=== PATIENT | female | born 1955 | race Caucasian/White ===

== ENCOUNTER 2021-10-25 19:07 | Inpatient (IN) | payer MEDICARE ==
[~2021-10-25] VITALS: Ht 165.1 cm; Wt 67.3 kg
[2021-10-25 19:35] LABS: Source, Urine Clean Catch
[2021-10-25 19:37] LABS: BASOPHILS ABSOLUTE AUTO 0.02 K/mm3 (0.00-0.23); BASOPHILS PERCENT AUTO 0 % (0-2); EOSINOPHILS ABSOLUTE AUTO 0.08 K/mm3 (0.00-0.68); EOSINOPHILS PERCENT AUTO 1 % (0-6); Hemoglobin 9.6 g/dL (11.5-16.0); IMMATURE GRAN ABSOLUTE AUTO 0.04 K/mm3 (0.00-0.10); IMMATURE GRAN PERCENT AUTO 0 % (0-1); LYMPHOCYTES ABSOLUTE AUTO 1.01 K/mm3 (0.84-5.20); LYMPHOCYTES PERCENT AUTO 11 % (21-46); MONOCYTES ABSOLUTE AUTO 0.67 K/mm3 (0.16-1.47); MONOCYTES PERCENT AUTO 7 % (4-13); Mean Corpuscular HGB 29.9 pg (26.0-34.0); Mean Corpuscular HGB Conc 36.9 g/dL (31.5-36.5); Mean Corpuscular Volume 81 fL (80-100); Mean Platelet Volume 8.8 fL (9.1-12.4); NEUTROPHILS ABSOLUTE AUTO 7.58 K/mm3 (1.96-9.15); NEUTROPHILS PERCENT AUTO 81 % (41-73); Platelet Count 461 K/mm3 (150-400); RDW Coefficient Variation 11.9 % (11.7-14.2); RDW Standard Deviation 35.4 fL (35.1-46.3); Red Blood Cell Count 3.21 M/mm3 (3.80-5.20)
[2021-10-25 19:38] LABS: Bilirubin, Urine Neg (Neg); Blood, Urine 5+ (Neg); Glucose Qualitative, Urine Neg (Neg); Ketones, Urine Neg (Neg); Leukocyte Esterase, Urine 3+ (Neg); Nitrite, Urine Neg (Neg); Protein, Urine 2+ (Neg); Urobilinogen, Urine NORM (Normal)
[2021-10-25 20:03] LABS: Appearance, Urine Hazy (Clear); Bacteria Many /hpf; Color, Urine Yellow (P-Yellow); Red Blood Cells, Urine 0-2 /hpf (0-2); Squamous Epithelial Cells Rare /hpf (Few); White Blood Cells, Urine TNTC /hpf (0-5)
[2021-10-25 20:11] LABS: Albumin, Blood 3.6 g/dL (3.4-5.0); Albumin/Globulin Ratio 1.2 (0.8-1.8); Bilirubin, Total 0.3 mg/dL (0.1-1.0); Bun/Creatinine Ratio 13.6 (12.0-20.0); Calcium, Blood 9.5 mg/dL (8.5-10.1); Creatinine, Blood 1.1 mg/dL (0.40-1.00); Globulin, Blood 3.1 g/dL (2.2-4.0); Potassium, Blood 3.2 mmol/L (3.5-5.5); Total Protein, Blood 6.7 g/dL (6.4-8.2)
[2021-10-26 03:29] LABS: Bun/Creatinine Ratio 12.4 (12.0-20.0); Calcium, Blood 8.9 mg/dL (8.5-10.1); Creatinine, Blood 1.13 mg/dL (0.40-1.00); Potassium, Blood 3.8 mmol/L (3.5-5.5)
[2021-10-26 06:15] LABS: BASOPHILS ABSOLUTE AUTO 0.02 K/mm3 (0.00-0.23); BASOPHILS PERCENT AUTO 0 % (0-2); EOSINOPHILS ABSOLUTE AUTO 0.07 K/mm3 (0.00-0.68); EOSINOPHILS PERCENT AUTO 1 % (0-6); Hematocrit 26.9 % (33.0-51.0); Hemoglobin 9.6 g/dL (11.5-16.0); IMMATURE GRAN ABSOLUTE AUTO 0.04 K/mm3 (0.00-0.10); IMMATURE GRAN PERCENT AUTO 1 % (0-1); LYMPHOCYTES ABSOLUTE AUTO 0.98 K/mm3 (0.84-5.20); LYMPHOCYTES PERCENT AUTO 12 % (21-46); MONOCYTES ABSOLUTE AUTO 0.77 K/mm3 (0.16-1.47); MONOCYTES PERCENT AUTO 9 % (4-13); Mean Corpuscular HGB 29.9 pg (26.0-34.0); Mean Corpuscular HGB Conc 35.7 g/dL (31.5-36.5); Mean Corpuscular Volume 84 fL (80-100); Mean Platelet Volume 8.8 fL (9.1-12.4); NEUTROPHILS ABSOLUTE AUTO 6.35 K/mm3 (1.96-9.15); NEUTROPHILS PERCENT AUTO 77 % (41-73); Platelet Count 415 K/mm3 (150-400); RDW Coefficient Variation 11.9 % (11.7-14.2); RDW Standard Deviation 36.7 fL (35.1-46.3); Red Blood Cell Count 3.21 M/mm3 (3.80-5.20); White Blood Cell Count 8.23 K/mm3 (4.00-11.30)
[2021-10-26 06:38] LABS: Alanine Aminotransfer (ALT/SGP 26 U/L (12-78); Albumin, Blood 3.3 g/dL (3.4-5.0); Alk Phos 64 U/L (50-136); Anion Gap 9 mmol/L (6-16); Bilirubin, Total 0.3 mg/dL (0.1-1.0); Blood Urea Nitrogen 15 mg/dL (8-24); Bun/Creatinine Ratio 11.6 (12.0-20.0); CO2, Blood 29 mmol/L (21-32); Calcium, Blood 9.3 mg/dL (8.5-10.1); Chloride, Blood 80 mmol/L (98-108); Creatinine, Blood 1.29 mg/dL (0.40-1.00); Globulin, Blood 3.2 g/dL (2.2-4.0); Glomerular Filtration Rate 46 (60-); Glucose, Blood 101 mg/dL (70-99); Potassium, Blood 3.8 mmol/L (3.5-5.5); Total Protein, Blood 6.5 g/dL (6.4-8.2)
[2021-10-26 06:40] LABS: Aspartate Aminotrans (AST/SGOT <3 U/L (12-37); Sodium, Blood 118 mmol/L (136-145)
--- NOTE | 2021-10-26 17:41 | NUR ---
SUMMARY PT RESTING IN BED. A/O X4 ALL DAY. USES CALL LIGHT APPROPRIATELY. WAS ON 3% SALINE FOR A SHORT TIME TODAY. SODIUM IMPROVING. NO SIGN OF DISTRESS. NO ACUTE CHANGES THIS SHIFT.
[2021-10-27 03:40] LABS: Bun/Creatinine Ratio 16.2 (12.0-20.0); Calcium, Blood 8.9 mg/dL (8.5-10.1); Creatinine, Blood 1.11 mg/dL (0.40-1.00); Potassium, Blood 3.7 mmol/L (3.5-5.5)
--- NOTE | 2021-10-27 05:49 | NUR ---
PT. RESTED OVERNIGHT AND HAD NO COMPLAINTS THROUGHOUT. PT. WAS UP TO COMMODE WITH STANBY ASSISTANCE FOR 2 VOIDS AND A BOWEL MOVEMENT. PT.'S BP, HR, AND 02 WERE WNL THROUGHOUT THE NIGHT. PT. SODIUM LAB OF THIS AM WAS UP TO 128. PT. RESTING COMFORTABLY AT THIS TIME.
--- NOTE | 2021-10-27 07:29 | NUR ---
REPORT FROM PM RN, NO DISTRESS, AWAKE, ORIENTED, PATIENT IS READY TO GO HOME, NA 128, CALL LIGHT WITH IN REACH, WCTM
[2021-10-27] MEDS ORDERED: Acetaminophen650 M1 PO (09:23)
[2021-10-27] MEDS ORDERED: VISBIOME 112.51 EACH PO (09:25)
[2021-10-27] MEDS ORDERED: CIPR500 PO (09:28)
--- NOTE | 2021-10-27 11:29 | NUR ---
DISCHARGED AT 1115, FRIEND ACCOMPANYING, PATIENT STATED UNDERSTANDING OF DISCHARGE INSTRUCTIONS AND FOLLOW UP NEEDS, VIA W/C TO CAR
== END 2021-10-27 11:15 | disposition home or self-care (01) | DRG 690 ==
LOC: ER 19:07 → ICUW 23:59 → ERHOLD 23:59 → ICUW 10-26 05:32
PROVIDERS: Emergency Medicine; Family Medicine; Internal Medicine; ADMIT Internal Medicine
DX: N39.0 Urinary tract infection, site not specified (principal); E87.1 Hypo-osmolality and hyponatremia; N17.9 Acute kidney failure, unspecified; B96.20 Unspecified Escherichia coli [E. coli] as the cause of diseases classified elsewhere; E87.6 Hypokalemia; I12.9 Hypertensive chronic kidney disease with stage 1 through stage 4 chronic kidney disease, or unspecified chronic kidney disease; N18.30 Chronic kidney disease, stage 3 unspecified; D63.1 Anemia in chronic kidney disease; D75.839 Thrombocytosis, unspecified; E78.5 Hyperlipidemia, unspecified; Z98.890 Other specified postprocedural states
CPT/HCPCS: 36415; 80048; 80053; 81001; 83036; 83930; 84295; 84300; 85025; 87077; 87086; 87186; 96374; 96375; 99285-25; A9270; J0696; J1650; J2405

== ENCOUNTER → 2022-08-22 | Outpatient (CLI) | payer MEDICARE, OTHER ==
[~2022-08-22] MED LIST: Acetaminophen650 M1 PO; CIPR500 PO; VISBIOME 112.51 EACH PO
[2022-08-22 15:59] LABS: Creatinine Urine 22.7 mg/dL (27.00-270.00); Protein, Urine Quantitative 22.5 mg/dL (0.0-11.9)
== END ==
LOC: LAB SHORT 03:30 → LAB 03:30
PROVIDERS: Internal Medicine Nephrology
DX: N18.30 Chronic kidney disease, stage 3 unspecified (principal); D63.1 Anemia in chronic kidney disease; N25.81 Secondary hyperparathyroidism of renal origin; E55.9 Vitamin D deficiency, unspecified; E78.00 Pure hypercholesterolemia, unspecified; E76.9 Glucosaminoglycan metabolism disorder, unspecified; R94.5 Abnormal results of liver function studies; R94.6 Abnormal results of thyroid function studies
CPT/HCPCS: 81050; 82043; 82570; 84156

== ENCOUNTER → 2023-02-19 | Outpatient (CLI) | payer MEDICARE, OTHER | LOC: LAB 13:37 → LAB SHORT 13:37 | DX: R30.0 Dysuria (principal) | CPT/HCPCS: 87077; 87086; 87186 ==

== ENCOUNTER → 2023-03-06 | Outpatient (CLI) | payer MEDICARE, OTHER | LOC: LAB SHORT 10:45 → LAB 10:45 | DX: R30.0 Dysuria (principal) | CPT/HCPCS: 87077; 87086; 87186 ==

== ENCOUNTER → 2023-03-25 | Outpatient (CLI) | payer MEDICARE, OTHER | END | disposition home or self-care (01) | LOC: LAB SHORT 13:43 → LAB 13:43 | DX: N39.0 Urinary tract infection, site not specified (principal) | CPT/HCPCS: 87086 ==

== ENCOUNTER → 2023-04-04 | Outpatient (CLI) | payer MEDICARE, OTHER | LOC: LAB 14:53 → LAB SHORT 14:53 | DX: N39.0 Urinary tract infection, site not specified (principal) | CPT/HCPCS: 87086 ==

== ENCOUNTER → 2023-12-25 | Outpatient (CLI) | payer MEDICARE, OTHER | LOC: LAB 09:00 → LAB SHORT 09:00 | DX: N39.0 Urinary tract infection, site not specified (principal) | CPT/HCPCS: 87077; 87086; 87186 ==

== ENCOUNTER 2024-06-10 20:59 | Observation (INO) | payer MEDICARE, OTHER ==
[~2024-06-10] VITALS: Ht 165.1 cm; Wt 62.1 kg
[2024-06-10 22:48] LABS: Source, Urine Clean Catch
[2024-06-10] MEDS ORDERED: Melatonin 3 MG Tab PO ONE (22:50)
[2024-06-10 23:07] LABS: Appearance, Urine Hazy (Clear); Bilirubin, Urine Neg (Neg); Blood, Urine 4+ (Neg); Color, Urine Yellow (P-Yellow); Glucose Qualitative, Urine Neg (Neg); Ketones, Urine Neg (Neg); Leukocyte Esterase, Urine 3+ (Neg); Nitrite, Urine Neg (Neg); Protein, Urine 2+ (Neg); Specific Gravity, Urine 1.005 (1.003-1.022); Urobilinogen, Urine NORM (Normal)
[2024-06-10 23:11] LABS: Albumin, Blood 3.9 g/dL (3.4-5.0); Albumin/Globulin Ratio 1.1 (0.8-1.8); Bilirubin, Total 0.3 mg/dL (0.1-1.0); Bun/Creatinine Ratio 17.2 (12.0-20.0); Calcium, Blood 9.5 mg/dL (8.5-10.1); Creatinine, Blood 1.51 mg/dL (0.40-1.00); Globulin, Blood 3.4 g/dL (2.2-4.0); Potassium, Blood 3.8 mmol/L (3.5-5.5); Thyroid Stimulating Hormone 4.79 uIU/mL (0.360-4.800); Total Protein, Blood 7.3 g/dL (6.4-8.2)
[2024-06-10 23:11] LABS: BASOPHILS ABSOLUTE AUTO 0.05 K/mm3 (0.00-0.23); BASOPHILS PERCENT AUTO 1 % (0-2); EOSINOPHILS ABSOLUTE AUTO 0.04 K/mm3 (0.00-0.68); EOSINOPHILS PERCENT AUTO 0 % (0-6); Hematocrit 28.9 % (33.0-51.0); Hemoglobin 9.9 g/dL (11.5-16.0); IMMATURE GRAN ABSOLUTE AUTO 0.05 K/mm3 (0.00-0.10); IMMATURE GRAN PERCENT AUTO 1 % (0-1); LYMPHOCYTES ABSOLUTE AUTO 1.33 K/mm3 (0.84-5.20); LYMPHOCYTES PERCENT AUTO 14 % (21-46); MONOCYTES ABSOLUTE AUTO 0.67 K/mm3 (0.16-1.47); MONOCYTES PERCENT AUTO 7 % (4-13); Mean Corpuscular HGB 32.1 pg (26.0-34.0); Mean Corpuscular HGB Conc 34.3 g/dL (31.5-36.5); Mean Corpuscular Volume 94 fL (80-100); Mean Platelet Volume 8.9 fL (9.1-12.4); NEUTROPHILS PERCENT AUTO 77 % (41-73); Platelet Count 319 K/mm3 (150-400); RDW Coefficient Variation 13.1 % (11.7-14.2); RDW Standard Deviation 44.8 fL (35.1-46.3); Red Blood Cell Count 3.08 M/mm3 (3.80-5.20); White Blood Cell Count 9.34 K/mm3 (4.00-11.30)
[2024-06-10 23:14] LABS: Squamous Epithelial Cells Few /hpf (Few); White Blood Cells, Urine 25-50 /hpf (0-5)
[2024-06-10 23:15] LABS: Bacteria Many /hpf; Transitional Epithelial Cells Rare /hpf (0-Rare)
[2024-06-10] MEDS ORDERED: CefTRIAXone Sodium 1,000 MG in NS 50 ML IV ONE (23:30)
[2024-06-11] MEDS ORDERED: FLU VACC TS2024-25(6MOS UP)/PF 45 MCG/0.5 ML SYRINGE IM ONE (00:20)
[2024-06-11] MEDS ORDERED: LOSA50 PO ×2 (00:42)
[2024-06-11] MEDS ORDERED: CATAPRES0.1 MG PO ×2 (00:44)
[2024-06-11] MEDS ORDERED: Labetalol HCL 5 MG/ML 4ML Injection (Single Dose) IV ONE (01:00)
[2024-06-11] MEDS ORDERED: Labetalol HCL 5 MG/ML 4ML Injection (Single Dose) IV PRN (01:00)
[2024-06-11 01:12] VITALS: BP 201/99
[2024-06-11] MEDS ORDERED: SODCHL1 PO ×2 (01:44)
[2024-06-11 04:45] VITALS: BP 161/116
[2024-06-11] MEDS ORDERED: Losartan Potassium 50 MG Tab PO SCH (05:00)
[2024-06-11] MEDS ORDERED: Atorvastatin 40 MG Tab PO SCH (05:00)
[2024-06-11] MEDS ORDERED: Aspirin 325 MG Tab PO ONE (05:00)
[2024-06-11] MEDS ORDERED: CloNIDine 0.1 MG Tab PO SCH (05:00)
[2024-06-11] MEDS ORDERED: Clopidogrel Bisulfate 300 MG TABLET PO ONE (05:00)
[2024-06-11 05:56] LABS: BASOPHILS ABSOLUTE AUTO 0.03 K/mm3 (0.00-0.23); BASOPHILS PERCENT AUTO 0 % (0-2); EOSINOPHILS ABSOLUTE AUTO 0.15 K/mm3 (0.00-0.68); EOSINOPHILS PERCENT AUTO 2 % (0-6); Hematocrit 29.4 % (33.0-51.0); Hemoglobin 10.3 g/dL (11.5-16.0); IMMATURE GRAN ABSOLUTE AUTO 0.03 K/mm3 (0.00-0.10); IMMATURE GRAN PERCENT AUTO 0 % (0-1); LYMPHOCYTES ABSOLUTE AUTO 1.36 K/mm3 (0.84-5.20); LYMPHOCYTES PERCENT AUTO 18 % (21-46); MONOCYTES ABSOLUTE AUTO 0.89 K/mm3 (0.16-1.47); MONOCYTES PERCENT AUTO 12 % (4-13); Mean Corpuscular HGB 32.5 pg (26.0-34.0); Mean Corpuscular Volume 93 fL (80-100); NEUTROPHILS ABSOLUTE AUTO 5.18 K/mm3 (1.96-9.15); NEUTROPHILS PERCENT AUTO 68 % (41-73); Platelet Count 335 K/mm3 (150-400); RDW Standard Deviation 44.2 fL (35.1-46.3); Red Blood Cell Count 3.17 M/mm3 (3.80-5.20); White Blood Cell Count 7.64 K/mm3 (4.00-11.30)
--- NOTE | 2024-06-11 06:09 | NUR ---
SHIFT SUMMARY; PATIENT ADMITED FROM ER VIA W/C. DENIES PAIN ABLE TO STAND AND MOVE TO BED. ADMIT COMPLETED. PATIETN REFUSED SCDS. SINCE SHE IS AMBULATORY. HTN NOTED
[2024-06-11 06:23] LABS: Anion Gap 12 mmol/L (3-11); Blood Urea Nitrogen 23 mg/dL (8-24); Bun/Creatinine Ratio 17.7 (12.0-20.0); CHOL/HDL RATIO 2.3; CO2, Blood 28 mmol/L (21-32); Calcium, Blood 9.5 mg/dL (8.5-10.1); Chloride, Blood 95 mmol/L (98-108); Cholesterol 218 mg/dL (50-200); Glomerular Filtration Rate 45 (60-); Glucose, Blood 97 mg/dL (70-99); HDL Cholesterol 96 mg/dL (>39); LDL/HDL RATIO 1.1; Low Density Lipoprotein Chol 104 mg/dL (0-110); Potassium, Blood 3.6 mmol/L (3.5-5.5); Sodium, Blood 131 mmol/L (136-145); Triglycerides 91 mg/dL (30-160); Very Low Density Lipoprot Chol 18 mg/dL (6-32)
--- NOTE | 2024-06-11 06:33 | NUR ---
PATIENT TAKEN VIA W/C FOR MRI.
[2024-06-11 07:43] VITALS: BP 189/92
[2024-06-11] MEDS ORDERED: Heparin Sodium 5000 Units/ML 1ML MDV SC SCH (09:00)
[2024-06-11] MEDS ORDERED: Sodium Chloride 1 GM TAB PO ONE (12:00)
[2024-06-11] MEDS ORDERED: ASPI81CH PO ×2 (13:02)
[2024-06-11] MEDS ORDERED: ATOR80 PO ×2 (13:02)
[2024-06-11] MEDS ORDERED: CLOP75 PO ×2 (13:02)
[2024-06-11 15:57] VITALS: BP 188/95
[2024-06-12] MEDS ORDERED: Clopidogrel Bisulfate 75 MG Tab PO SCH (05:00)
[2024-06-12] MEDS ORDERED: Aspirin 81 MG Chew PO SCH (05:00)
== END 2024-06-11 16:17 | disposition home or self-care (01) ==
LOC: ER 20:59 → ERHOLD 21:00 → MEDS 06-11 00:15 → ER 06-11 00:15 → MEDS 06-11 01:01 → ERHOLD 06-11 01:01 → MEDS 06-11 01:02
PROVIDERS: Emergency Medicine; Family Medicine; ADMIT Internal Medicine
DX: I63.9 Cerebral infarction, unspecified (principal); R29.818 Other symptoms and signs involving the nervous system; I10 Essential (primary) hypertension; N39.0 Urinary tract infection, site not specified; E87.1 Hypo-osmolality and hyponatremia; E78.00 Pure hypercholesterolemia, unspecified; D64.9 Anemia, unspecified; Z79.82 Long term (current) use of aspirin
CPT/HCPCS: 36415; 70450; 70496; 70498; 70551; 71046; 80048; 80053; 80061; 81001; 83036; 83605; 84443; 84484; 85025; 85730; 87040; 87077; 87086; 87186; 93005; 93010; 96374; 99285-25; A9270; G0378; J0696; Q9967

== ENCOUNTER 2024-06-30 09:28 | Emergency (ER) | payer MEDICARE, OTHER ==
[~2024-06-30] VITALS: Ht 167.6 cm; Wt 72.6 kg
[~2024-06-30 09:28] MED LIST changes: +ASPI81CH PO; +ATOR80 PO; +CATAPRES0.1 MG PO; +CLOP75 PO; +LOSA50 PO; +SODCHL1 PO
[2024-06-30 10:32] LABS: Source, Urine Clean Catch
[2024-06-30 10:39] LABS: Appearance, Urine Clear (Clear); Bilirubin, Urine Neg (Neg); Blood, Urine 5+ (Neg); Color, Urine Yellow (P-Yellow); Glucose Qualitative, Urine Neg (Neg); Ketones, Urine Neg (Neg); Leukocyte Esterase, Urine 3+ (Neg); Nitrite, Urine Neg (Neg); Protein, Urine 2+ (Neg); Urobilinogen, Urine NORM (Normal)
[2024-06-30 10:42] LABS: BASOPHILS ABSOLUTE AUTO 0.06 K/mm3 (0.00-0.23); BASOPHILS PERCENT AUTO 0 % (0-2); EOSINOPHILS ABSOLUTE AUTO 0.02 K/mm3 (0.00-0.68); EOSINOPHILS PERCENT AUTO 0 % (0-6); Hematocrit 29.9 % (33.0-51.0); Hemoglobin 10.5 g/dL (11.5-16.0); IMMATURE GRAN PERCENT AUTO 1 % (0-1); LYMPHOCYTES ABSOLUTE AUTO 0.73 K/mm3 (0.84-5.20); LYMPHOCYTES PERCENT AUTO 4 % (21-46); MONOCYTES ABSOLUTE AUTO 1.53 K/mm3 (0.16-1.47); MONOCYTES PERCENT AUTO 7 % (4-13); Mean Corpuscular HGB 32.6 pg (26.0-34.0); Mean Corpuscular HGB Conc 35.1 g/dL (31.5-36.5); Mean Corpuscular Volume 93 fL (80-100); Mean Platelet Volume 9.2 fL (9.1-12.4); NEUTROPHILS ABSOLUTE AUTO 18.12 K/mm3 (1.96-9.15); NEUTROPHILS PERCENT AUTO 88 % (41-73); Platelet Count 475 K/mm3 (150-400); RDW Coefficient Variation 12.2 % (11.7-14.2); RDW Standard Deviation 41.9 fL (35.1-46.3); Red Blood Cell Count 3.22 M/mm3 (3.80-5.20); White Blood Cell Count 20.56 K/mm3 (4.00-11.30)
[2024-06-30 10:53] LABS: Bacteria Many /hpf; Hyaline Casts 0-2 /lpf (0-2); Mucus Light (0-Heavy); Red Blood Cells, Urine 50-100 /hpf (0-2); Squamous Epithelial Cells Few /hpf (Few); White Blood Cells, Urine 50-100 /hpf (0-5)
[2024-06-30 11:18] LABS: Albumin, Blood 3.3 g/dL (3.4-5.0); Albumin/Globulin Ratio 0.8 (0.8-1.8); Bilirubin, Total 0.6 mg/dL (0.1-1.0); Bun/Creatinine Ratio 13.5 (12.0-20.0); Calcium, Blood 8.8 mg/dL (8.5-10.1); Creatinine, Blood 1.56 mg/dL (0.40-1.00); Globulin, Blood 3.9 g/dL (2.2-4.0); Total Protein, Blood 7.2 g/dL (6.4-8.2)
[2024-06-30] MEDS ORDERED: Piperacillin/Tazobactam Sod 3.375 GM in NS 100 ML IV ONE (11:30)
[2024-06-30] MEDS ORDERED: CATAPRES0.1 MG PO (11:56)
[2024-06-30] MEDS ORDERED: AMOCLA875 PO (12:45)
[2024-06-30 13:15] VITALS: BP 166/86
== END 2024-06-30 13:27 | disposition home or self-care (01) ==
LOC: ER 09:28
PROVIDERS: Emergency Medicine
DX: K57.32 Diverticulitis of large intestine without perforation or abscess without bleeding (principal); N39.0 Urinary tract infection, site not specified; I10 Essential (primary) hypertension; Z79.82 Long term (current) use of aspirin; Z79.899 Other long term (current) drug therapy
CPT/HCPCS: 74177; 80053; 81001; 83605; 85025; 87040; 87077; 87086; 87186; 96365-59; 99284-25; J2543; Q9967

== ENCOUNTER 2024-07-21 12:37 | Inpatient (IN) | payer MEDICARE, OTHER ==
[~2024-07-21] VITALS: Ht 167.6 cm; Wt 61.0 kg
[~2024-07-21 12:37] MED LIST changes: +AMOCLA875 PO
[2024-07-21 13:29] LABS: BASOPHILS ABSOLUTE AUTO 0.05 K/mm3 (0.00-0.23); BASOPHILS PERCENT AUTO 0 % (0-2); EOSINOPHILS ABSOLUTE AUTO 0.02 K/mm3 (0.00-0.68); EOSINOPHILS PERCENT AUTO 0 % (0-6); Hematocrit 25.7 % (33.0-51.0); Hemoglobin 8.7 g/dL (11.5-16.0); IMMATURE GRAN PERCENT AUTO 1 % (0-1); LYMPHOCYTES PERCENT AUTO 3 % (21-46); MONOCYTES PERCENT AUTO 5 % (4-13); Mean Corpuscular HGB 31.5 pg (26.0-34.0); Mean Corpuscular HGB Conc 33.9 g/dL (31.5-36.5); Mean Corpuscular Volume 93 fL (80-100); Mean Platelet Volume 9.4 fL (9.1-12.4); NEUTROPHILS ABSOLUTE AUTO 22.55 K/mm3 (1.96-9.15); NEUTROPHILS PERCENT AUTO 91 % (41-73); Platelet Count 491 K/mm3 (150-400); RDW Coefficient Variation 12.7 % (11.7-14.2); RDW Standard Deviation 43.4 fL (35.1-46.3); Red Blood Cell Count 2.76 M/mm3 (3.80-5.20); White Blood Cell Count 24.72 K/mm3 (4.00-11.30)
[2024-07-21 13:44] LABS: Albumin, Blood 2.9 g/dL (3.4-5.0); Albumin/Globulin Ratio 0.8 (0.8-1.8); Bilirubin, Total 0.8 mg/dL (0.1-1.0); Calcium, Blood 8.6 mg/dL (8.5-10.1); Creatinine, Blood 1.23 mg/dL (0.40-1.00); Globulin, Blood 3.5 g/dL (2.2-4.0); Potassium, Blood 3.9 mmol/L (3.5-5.5); Total Protein, Blood 6.4 g/dL (6.4-8.2)
[2024-07-21] MEDS ORDERED: Piperacillin/Tazobactam Sod 3.375 GM in NS 100 ML IV ONE (14:45)
[2024-07-21] MEDS ORDERED: SODCHL1 PO (17:43)
[2024-07-21 17:44] VITALS: BP 171/79
[2024-07-21] MEDS ORDERED: ATOR80 PO (17:45)
[2024-07-21 19:20] VITALS: BP 171/75
[2024-07-21] MEDS ORDERED: Lactobacil 2-S.Thermo-Bifido 1 1 Cap PO SCH (21:00)
[2024-07-21] MEDS ORDERED: Melatonin 5 MG Tablet PO PRN (21:10)
[2024-07-21] MEDS ORDERED: NS 250 ML IV PRN (22:10)
[2024-07-21] MEDS ORDERED: Piperacillin/Tazobactam Sod 3.375 GM in NS 100 ML IV SCH (23:00)
[2024-07-22 02:16] VITALS: BP 174/91
[2024-07-22] MEDS ORDERED: HydrALAZINE HCl 20 MG / ML 1ML Vial IV PRN (02:45)
--- NOTE | 2024-07-22 04:24 | NUR ---
SENIOR PHP WEB DEVELOPER SUMMARY BP ELEVATED, OTHERWISE VSS. NOTIFIED AND PRN OF ANTIHYPERTENSIVE MED ORDERED. SEE JUN. ASYMPTOMATIC. ALERT AND ORIENTED. ANTIBIOTICS STARTED - SEE JUN FOR DETAILS. HAD 2 BMS THIS SHIFT, FIRST PT REPORTED "CLOTS" BUT HAD FLUSHED TOILET. AGREED TO ALLOW STAFF TO SEE NEXT BM. NOTED TWO LARGE RED CLUMPS. OTHERWISE PT ASYMPTOMATIC. HAS BEEN RESTING QUIETLY WITH FEW INTERRUPTIONS OTHERWISE SINCE MELATONIN ADMIN AT HS. DENIED PAIN OR DISTRESS. CALL LIGHT IN REACH, RAILS UP X 2 AND BED IN LOW POSITION FOR SAFETY. WILL CONT TO MONITOR
[2024-07-22 05:26] LABS: BASOPHILS ABSOLUTE AUTO 0.04 K/mm3 (0.00-0.23); BASOPHILS PERCENT AUTO 0 % (0-2); EOSINOPHILS ABSOLUTE AUTO 0.22 K/mm3 (0.00-0.68); EOSINOPHILS PERCENT AUTO 2 % (0-6); Hematocrit 22.5 % (33.0-51.0); Hemoglobin 7.6 g/dL (11.5-16.0); IMMATURE GRAN ABSOLUTE AUTO 0.09 K/mm3 (0.00-0.10); IMMATURE GRAN PERCENT AUTO 1 % (0-1); LYMPHOCYTES ABSOLUTE AUTO 0.91 K/mm3 (0.84-5.20); LYMPHOCYTES PERCENT AUTO 6 % (21-46); MONOCYTES ABSOLUTE AUTO 0.91 K/mm3 (0.16-1.47); MONOCYTES PERCENT AUTO 6 % (4-13); Mean Corpuscular HGB 31.3 pg (26.0-34.0); Mean Corpuscular HGB Conc 33.8 g/dL (31.5-36.5); Mean Corpuscular Volume 93 fL (80-100); Mean Platelet Volume 9.3 fL (9.1-12.4); NEUTROPHILS ABSOLUTE AUTO 12.91 K/mm3 (1.96-9.15); NEUTROPHILS PERCENT AUTO 86 % (41-73); Platelet Count 457 K/mm3 (150-400); RDW Coefficient Variation 12.5 % (11.7-14.2); RDW Standard Deviation 42.7 fL (35.1-46.3); Red Blood Cell Count 2.43 M/mm3 (3.80-5.20); White Blood Cell Count 15.08 K/mm3 (4.00-11.30)
[2024-07-22 05:45] LABS: Bun/Creatinine Ratio 11.3 (12.0-20.0); Calcium, Blood 8.3 mg/dL (8.5-10.1); Creatinine, Blood 1.24 mg/dL (0.40-1.00); Potassium, Blood 3.8 mmol/L (3.5-5.5)
[2024-07-22 07:43] VITALS: BP 174/81
[2024-07-22] MEDS ORDERED: Losartan Potassium 50 MG Tab PO SCH (09:00)
[2024-07-22] MEDS ORDERED: Atorvastatin 40 MG Tab PO SCH (09:00)
[2024-07-22] MEDS ORDERED: CloNIDine 0.1 MG Tab PO SCH (09:00)
[2024-07-22] MEDS ORDERED: Sodium Chloride 1 GM TAB PO SCH (10:35)
[2024-07-22 14:36] LABS: Hematocrit 23.4 % (33.0-51.0); Hemoglobin 7.9 g/dL (11.5-16.0)
[2024-07-22 15:36] VITALS: BP 135/76
[2024-07-22 19:20] VITALS: BP 149/82
--- NOTE | 2024-07-22 19:28 | NUR ---
Patient A&Ox4, able to ambulate fine without assistance of staff and equipment. She was admitted due to GI bleed Is on a clear diet, last bowel movement 07/22/2024 was still bloody, but not runny. Asymptomatic besides the bloody stool. Denied pain or distress.
[2024-07-23] VITALS (10 sets, daily range): BP systolic 128–153; BP diastolic 71–92
--- NOTE | 2024-07-23 03:15 | NUR ---
SHIFT SUMMARY NO ACUTE EVENTS DURING THIS SHIFT. PT IS A/O X4, INDEPENDENT W/I THE HOSPITAL ROOM AND COOPERATIVE WITH CARE. PT REPORTS NO BM DURING THIS SHIFT. HS MELATONIN ADMINISTERED ORDERED. PT DENIES PAIN AND DISCOMFORT. PT REPORTS WOULD LIKE TO D/C TODAY. PT CONTINUES ON CLEAR LIQUID DIET, TOLERATING WELL. IV ABX INFUSED ORDERED (ZOSYN). BED AT THE LOWEST POSITION, CALL LIGHT W/I REACH.
[2024-07-23 05:40] LABS: Hematocrit 22.1 % (33.0-51.0); Hemoglobin 7.4 g/dL (11.5-16.0)
[2024-07-23 06:11] LABS: Bun/Creatinine Ratio 9.2 (12.0-20.0); Calcium, Blood 8.2 mg/dL (8.5-10.1); Creatinine, Blood 1.31 mg/dL (0.40-1.00); Potassium, Blood 3.5 mmol/L (3.5-5.5)
[2024-07-23 08:21] LABS: BASOPHILS ABSOLUTE AUTO 0.03 K/mm3 (0.00-0.23); BASOPHILS PERCENT AUTO 0 % (0-2); EOSINOPHILS ABSOLUTE AUTO 0.73 K/mm3 (0.00-0.68); EOSINOPHILS PERCENT AUTO 10 % (0-6); Hematocrit 21.6 % (33.0-51.0); Hemoglobin 7.3 g/dL (11.5-16.0); IMMATURE GRAN ABSOLUTE AUTO 0.08 K/mm3 (0.00-0.10); IMMATURE GRAN PERCENT AUTO 1 % (0-1); LYMPHOCYTES ABSOLUTE AUTO 0.95 K/mm3 (0.84-5.20); LYMPHOCYTES PERCENT AUTO 12 % (21-46); MONOCYTES ABSOLUTE AUTO 0.76 K/mm3 (0.16-1.47); MONOCYTES PERCENT AUTO 10 % (4-13); Mean Corpuscular HGB 31.3 pg (26.0-34.0); Mean Corpuscular HGB Conc 33.8 g/dL (31.5-36.5); Mean Corpuscular Volume 93 fL (80-100); Mean Platelet Volume 9.6 fL (9.1-12.4); NEUTROPHILS ABSOLUTE AUTO 5.17 K/mm3 (1.96-9.15); NEUTROPHILS PERCENT AUTO 67 % (41-73); Platelet Count 488 K/mm3 (150-400); RDW Coefficient Variation 12.7 % (11.7-14.2); RDW Standard Deviation 43.5 fL (35.1-46.3); Red Blood Cell Count 2.33 M/mm3 (3.80-5.20); White Blood Cell Count 7.72 K/mm3 (4.00-11.30)
[2024-07-23 14:14] LABS: Hematocrit 20.8 % (33.0-51.0); Hemoglobin 6.8 g/dL (11.5-16.0)
--- NOTE | 2024-07-23 16:15 | NUR ---
note pt hbg 6.8. blood consent signed by dr. echeverria. pt type and screen complete, break nurse and charge nurse verified blood. pt educated on s/s of reaction. vitals taken pre infusion. blood started at rate of 25 ml/hr. 15 minutes passed with rn at bedside. pt reports no s/s of reaction. vss. blood infusing at 100ml/hr. call light in reach.
--- NOTE | 2024-07-23 19:34 | NUR ---
SHIFT SUMMARY PT A&OX4. VSS. PT ADMITTED DUE TO LOWER GI BLEED. PT RECEIVED A UNIT OF BLOOD TODAY DUE TO HGB BEING 6.8. DOC NOTIFIED. VSS. NO S/S OF REACTION TO BLOOD. PT ON CLEAR LIQUID DIET, REPORTS TOLERATING WITH NO NAUSEA. PT REPORTS BLOOD IN STOOL THIS AM. DR. LINO PUT IN A NURSE NOTIFY ORDER, ATTEMPTED TO CALL DR. ROMERO, DR. ROMERO REPORTED NEEDING TO ANSWER CALL AND WILL CALL BACK, NO CALL BACK, LET NIGHT RN KNOW TO PASS ON TOMORROW. CALLED LAB POST BLOOD TRANSFUSION TO DRAW H&H 2 HR POST TRANSFUSION, LAB AGREED TO DRAW WITH TIMING. PT INDEPENDENT IN ROOM. PT IN BED, BED IN LOWEST POSITION, PT WALKS FREQ, WHEN NOT HOOKED TO IV, PT HAS ONE LINE, BLOOD WAS TRANSFUSING WHEN ANTIBIOTIC WAS DUE CALLED PHARM TO RETIME MED. PT WILL GET ANTIBIOTIC TONIGHT. BUBBLE STUDY COMPLETED. PT CALLS APPROPRIATE.
[2024-07-23] MEDS ORDERED: Piperacillin/Tazobactam Sod 3.375 GM in NS 100 ML IV SCH (21:00)
[2024-07-23 21:37] LABS: Hematocrit 23.2 % (33.0-51.0); Hemoglobin 7.7 g/dL (11.5-16.0)
--- NOTE | 2024-07-24 04:18 | NUR ---
SHIFT SUMMARY PATIENT HAD NO ACUTE CHANGES. ALERT ORIENTED AND INDEPENDENT IN ROOM. PIV INTACT. IV ABX INFUSED. TELE MONITOR NSR 80'S. DENIES CHEST PAIN, SOB, AND N/V. VSS/AFEBRILE. MELATONIN 5 MG GIVEN FOR INSOMNIA. COOPERATIVE WITH CARE. CALL LIGHT IN REACH. BED IN LOWEST POSITION. WILL CONTINUE TO MONITOR UNTIL DAY SHIFT NURSE ASSUMES CARE.
[2024-07-24 05:23] VITALS: BP 160/83
[2024-07-24 05:50] LABS: BASOPHILS ABSOLUTE AUTO 0.05 K/mm3 (0.00-0.23); BASOPHILS PERCENT AUTO 1 % (0-2); EOSINOPHILS ABSOLUTE AUTO 0.76 K/mm3 (0.00-0.68); EOSINOPHILS PERCENT AUTO 8 % (0-6); Hematocrit 25.6 % (33.0-51.0); Hemoglobin 8.7 g/dL (11.5-16.0); IMMATURE GRAN ABSOLUTE AUTO 0.09 K/mm3 (0.00-0.10); IMMATURE GRAN PERCENT AUTO 1 % (0-1); LYMPHOCYTES ABSOLUTE AUTO 1.06 K/mm3 (0.84-5.20); LYMPHOCYTES PERCENT AUTO 12 % (21-46); MONOCYTES ABSOLUTE AUTO 0.76 K/mm3 (0.16-1.47); MONOCYTES PERCENT AUTO 8 % (4-13); Mean Corpuscular HGB 30.4 pg (26.0-34.0); Mean Corpuscular Volume 90 fL (80-100); Mean Platelet Volume 9.2 fL (9.1-12.4); NEUTROPHILS ABSOLUTE AUTO 6.52 K/mm3 (1.96-9.15); NEUTROPHILS PERCENT AUTO 71 % (41-73); Platelet Count 554 K/mm3 (150-400); RDW Coefficient Variation 14.5 % (11.7-14.2); RDW Standard Deviation 47.5 fL (35.1-46.3); Red Blood Cell Count 2.86 M/mm3 (3.80-5.20); White Blood Cell Count 9.24 K/mm3 (4.00-11.30)
[2024-07-24 06:14] LABS: Albumin, Blood 2.8 g/dL (3.4-5.0); Albumin/Globulin Ratio 0.8 (0.8-1.8); Bilirubin, Total 0.8 mg/dL (0.1-1.0); Bun/Creatinine Ratio 7.9 (12.0-20.0); Calcium, Blood 8.2 mg/dL (8.5-10.1); Creatinine, Blood 1.27 mg/dL (0.40-1.00); Globulin, Blood 3.4 g/dL (2.2-4.0); Potassium, Blood 3.6 mmol/L (3.5-5.5); Total Protein, Blood 6.2 g/dL (6.4-8.2)
[2024-07-24 07:02] VITALS: BP 163/84
[2024-07-24] MEDS ORDERED: VISBIOME 112.51 EACH PO (12:19)
[2024-07-24] MEDS ORDERED: CIPR500 PO (12:19)
[2024-07-24] MEDS ORDERED: METR500 PO (12:20)
[2024-07-24 14:11] LABS: Hemoglobin 8.6 g/dL (11.5-16.0)
--- NOTE | 2024-07-24 15:03 | NUR ---
SHIFT SUMMARY 1400 PT AOX4, COOPERATIVE, ABLE TO MAKE NEEDS KNOWN, PT HAS BEEN IND ALL SHIFT. WALKING HALLS, RESTLESS, CANNOT SIT STILL. ON ROOM AIR. IV WAS DC'D BY CHERYL. THIS RN WENT OVER DC PAPERWORK WITH PT AND PT AMUBLATED OUT OF ROOM DOWN TO TRANSPORT. BELONGINGS WENT WITH PT.
== END 2024-07-24 14:09 | disposition home or self-care (01) | DRG 378 ==
LOC: ER 12:37 → MEDS 12:38
PROVIDERS: Emergency Medicine; Family Medicine; ADMIT Internal Medicine
PROC: 30233N1 Transfusion of Nonautologous Red Blood Cells into Peripheral Vein, Percutaneous Approach (ICD-10-PCS; principal; 2024-07-23)
DX: K57.33 Diverticulitis of large intestine without perforation or abscess with bleeding (principal); E87.1 Hypo-osmolality and hyponatremia; D63.8 Anemia in other chronic diseases classified elsewhere; E78.5 Hyperlipidemia, unspecified; I10 Essential (primary) hypertension; N63.20 Unspecified lump in the left breast, unspecified quadrant; Z79.82 Long term (current) use of aspirin; Z86.73 Personal history of transient ischemic attack (TIA), and cerebral infarction without residual deficits
CPT/HCPCS: 36415; 36430; 71275; 74174; 74177; 80048; 80053; 83605; 85014; 85018; 85025; 86850; 86900; 86901; 86923; 93306; 96365; 96366; 96374-59; 96375; 96376; 99285-25; A9270; G0378; J0360; J2543; J7050; P9016; Q9967